=== PATIENT | male | born 1995 | race Caucasian/White ===

== ENCOUNTER 2016-12-14 21:32 | Emergency (ER) | payer MEDICAID, OTHER ==
[~2016-12-14 21:32] MED LIST: AMOX875 PO; MMW SSP
[2016-12-14 21:33] VITALS: BP 123/79; PULSE 103; RESP 18; TEMP 100.9; O2SAT 96
[2016-12-14] MEDS ORDERED: BACT800T5 PO (22:23)
[2016-12-14] MEDS ORDERED: CEPH-460 PO (22:23)
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
[2016-12-14] MEDS ORDERED: SULFAMETHOXAZOLE-TRIMETHOPRIM DS 800-160 MG TAB PO ONE (22:30)
[2016-12-14] MEDS ORDERED: CEPHALEXIN MONOHYDRATE 500 MG CAP PO ONE (22:30)
== END 2016-12-14 22:40 | disposition home or self-care (01) ==
LOC: NEPB 21:32
DX: L02.611 Cutaneous abscess of right foot (principal)
CPT/HCPCS: 99282

== ENCOUNTER 2017-11-13 16:06 | Emergency (ER) | payer OTHER ==
[~2017-11-13 16:06] MED LIST changes: -AMOX875 PO; +BACT800T5 PO; +CEPH-460 PO; -MMW SSP
[2017-11-13 16:11] VITALS: BP 147/77; PULSE 68; RESP 18; TEMP 98.7; O2SAT 100
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
[2017-11-13] MEDS ORDERED: KETOROLAC TROMETHAMINE 60 MG/2 ML (IM) VIAL IM ONE (18:15)
== END 2017-11-13 18:45 | disposition home or self-care (01) ==
LOC: NEPK 16:06
DX: S16.1XXA Strain of muscle, fascia and tendon at neck level, initial encounter (principal); S80.01XA Contusion of right knee, initial encounter; V89.2XXA Person injured in unspecified motor-vehicle accident, traffic, initial encounter
CPT/HCPCS: 70450; 71046; 72125; 73564; 96372; 99284; J1885